=== PATIENT | female | born 1990 | race Caucasian/White ===

== ENCOUNTER 2016-08-28 14:13 | Inpatient (IN) | payer OTHER ==
[~2016-08-28] VITALS: Ht 157.5 cm; Wt 84.4 kg
[~2016-08-28 14:13] MED LIST: CEPH-443 PO
[2016-08-28 14:19] VITALS: BP 113/71; Ht 157.5 cm; Wt 84.4 kg
[2016-08-28] MEDS ORDERED: PREN1TAB17 PO (14:24)
[2016-08-28] MEDS ORDERED: FERR134T PO (14:25)
[2016-08-28] MEDS ORDERED: OXYTOCIN 30 UNITS/LR 500 ML IV PRN (15:30)
[2016-08-28] MEDS ORDERED: OXYTOCIN 30 UNITS/LR 500 ML IV SCH ×2 (15:30)
[2016-08-28] MEDS ORDERED: METHYLERGONOVINE 0.2 MG INJ IM PRN (15:30)
[2016-08-28] MEDS ORDERED: CARBOPROST 250 MCG INJ IM PRN (15:30)
[2016-08-28] MEDS ORDERED: MISOPROSTOL 200 MCG TAB PR PRN (15:30)
[2016-08-28] MEDS ORDERED: LIDOCAINE 1% (MPF) 30 ML INJ INJ PRN (15:30)
[2016-08-28] MEDS ORDERED: BUTORPHANOL 2 MG INJ IV PRN (15:30)
--- NOTE | 2016-08-28 15:44 | TRIAGE ---
OB Triage Datetime Report Generated by CPN: 08/28/2016 15:43 Datetime: 08/28/2016 14:36 Vaginal Exam Dilatation (cms): 0.0 Effacement (%): 50 Station: -3 Exam By: Enrique VILLEGAS Membrane Status: Ruptured Membranes Rupture Method: Spontaneous Amniotic Fluid Amount: Moderate Amniotic Fluid Odor: None Pool: Positive Nitrazine: Positive Datetime: 08/28/2016 14:28 Stage of : OB Triage Assessment Type: Triage Maternal Assessment Level of Consciousness: Fully Conscious DTR's/Clonus: DTRs 2+; No Clonus Headache: Denies Blurred Vision: No Respiratory Effort: Unlabored; Regular Rhythm; Equal Expansion Breath Sounds, Left: Clear and Equal Breath Sounds, Right: Clear and Equal Nausea/Vomiting: Denies RUQ Epigastric Pain: Denies Lower Extremities Edema: None Degree: None Upper Extremities Edema: None Degree: None Facial Edema: None Temperature Route: Oral Fall Risk Assessment History of Falling: (0) No Secondary Diagnosis: (0) No Ambulatory Aid: (0) Bedrest/Nurse Assist IV Therapy: (0) No Gait: (0) Normal/Bedrest/Immobile Mental Status: (0) Oriented to Own Ability Fall Score: 0 Fall Risk Score Definition: No Risk: No action required Labor Evaluation Monitor Mode: External Heart Rate FHR Baseline Rate: 135 Monitor Mode: External US Variability: Moderate 6-25 bpm Accelerations: 15X15 Decelerations: None Category: Category I Pain Assessment Pain Scale: 0 Pain Presence: None/Denies Pain Type: N/A Datetime: 08/28/2016 14:27 Time of Arrival: 08/28/2016 14:08 EGA: 38.1 Arrived By: Ambulatory Arrived From: Home Chief Complaint: C/O SPOTTING AND UC'S Movement: Present Contractions: Irregular Time Contractions Began: 08/28/2016 08:00 Contractions: X10 MIN Rupture of Membranes: Unsure Vaginal Bleeding: Small Vaginal Discharge: Denies Recent Sexual Intercouse: Denies Abdominal Trauma: Not Applicable Patient Complaints: Contractions Time Provider Notified: 08/28/2016 14:45 Provider Notified: Dr. Fox Initial Plan: [id number]
--- NOTE | 2016-08-28 16:13 | RADRPT ---
PROCEDURE: Obstetrical ultrasound CLINICAL INDICATION: [facility] TECHNIQUE: Multiple sonographic images of the pelvis were obtained. The images were reviewed on a PACS workstation. COMPARISON: None FINDINGS: The cervix is not well visualized. There is a single viable intrauterine gestation. Cardiac activity is present with 137 beats per minute. There is a vertex presentation. The placenta is posterior. There is no evidence for an abruption or placenta previa. There is a subjectively normal amount of amniotic fluid. Measurements were made in order to determine age. The results are as follows (cm): BPD =9.15 HC =32.86 AC =33.11 FL =7.23 Estimated gestational age by ultrasound of approximately 37 weeks, 1 day. The estimated date of delivery by ultrasound is 09/17/2016. Estimated gestational age by LMP of approximately 38 weeks, 1 day. The estimated date of delivery by LMP is 09/10/2016. EFW = 3107 grams (35th percentile) IMPRESSION: Single viable intrauterine gestation of approximately 37 weeks, 1 day . The estimated date of delivery is 09/17/2016 . Dating by ultrasound is within 1 week of dating by LMP. Cephalic presentation. The cervix is not well visualized. There is a subjectively normal amount of amniotic fluid. RPTAT: EE Physician Cyrus Date Time Electronically viewed and signed by Physician Cyrus on 08/28/2016 16:13 /
[2016-08-28] MEDS: LACTATED RINGER'S 1,000 ML IV SCH ×3 (16:15→19:01)
[2016-08-28 16:29] LABS: BASOPHILS % 0.1 % (0.0-2.0); EOSINOPHILS # 0.1 10^3/ul (0.0-0.5); EOSINOPHILS % 0.6 % (0.0-7.0); HEMOGLOBIN 11.7 g/dl (12.0-16.0); LYMPHOCYTES # 2.2 10^3/ul (0.8-2.9); LYMPHOCYTES % 23.8 % (15.0-51.0); MEAN CORPUSCULAR HEMOGLOBIN 27.9 pg (29.0-33.0); MEAN CORPUSCULAR HGB CONC 33.4 g/dl (32.0-37.0); MEAN CORPUSCULAR VOLUME 83.5 fl (82.0-101.0); MONOCYTE # 0.5 10^3/ul (0.3-0.9); MONOCYTES % 5.2 % (0.0-11.0); NEUTROPHIL # 6.5 10^3/ul (1.6-7.5); PLATELET COUNT 263 10^3/UL (140-415); RED BLOOD COUNT 4.19 10^6/ul (4.20-5.40); RED CELL DISTRIBUTION WIDTH 14.5 % (11.5-14.5); WHITE BLOOD COUNT 9.4 10^3/ul (4.8-10.8)
[2016-08-28 16:35] LABS: INR 0.88; PROTIME 11.9 Sec (12.2-14.2); PT RATIO 0.9
[2016-08-28 16:36] LABS: PARTIAL THROMBOPLASTIN TIME 26.2 Sec (25.0-35.0)
[2016-08-28] MEDS ORDERED: LACTATED RINGER'S 1,000 ML IV PRN (18:00)
[2016-08-28] MEDS ORDERED: FENTAnyl 2MCG/ML-ROPIV 0.2% 100 ML BAG EPI SCH (19:00)
[2016-08-28] MEDS ORDERED: DIPHENHYDRAMINE 50 MG INJ IV PRN (19:00)
[2016-08-28] MEDS ORDERED: EPHEDrine SULFATE 50 MG/5 ML SYG IV PRN (19:00)
[2016-08-28] MEDS ORDERED: ONDANSETRON 4 MG INJ IV PRN (19:00)
[2016-08-28] MEDS ORDERED: NALOXONE (0.4 MG/ML) INJ IV PRN (19:00)
[2016-08-29] MEDS: LACTATED RINGER'S 1,000 ML IV SCH (02:40)
[2016-08-29] MEDS ORDERED: LACTATED RINGER'S 1,000 ML IV* SCH (06:34)
--- NOTE | 2016-08-29 06:34 | LDN ---
Date/Time of Note Date/Time of Note DATE: 08/29/16 TIME: 06:32 Delivery Summary VAVD secondary to maternal exhaustion, 1 pull 15 seconds no pop offs, no complication Weeks of Gestation 38 Assisted Vaginal Delivery: Vacuum Placenta Delivered: Spontaneously Meconium: none Episiotomy: Yes Laceration repair: rmle repair with 2-0 and 3-0 chromic Anesthesia type: Epidural Estimated blood loss: 250 Sponge & Needle done & correct: Yes All needle counts correct: Yes Any foreign bodies felt in the: No Problems: Delivery Information Sex Sex: female Apgars 1 Minute: 9 5 Minute: 9 Suctioning Nose & mouth suctioned at rafa: No Delee suction performed: No Umbilical Cord Umbilical cord with: 3 Vessels Cord Blood was obtained: Yes YAHAIRA COURTNEY MD Aug 29, 2016 06:34
--- NOTE | 2016-08-29 06:41 | HP ---
Date/Time of Note Date/Time of Note DATE: 08/29/16 TIME: 06:38 Assessment/Plan VTE Prophylaxis VTE Prophylaxis Intervention: SCD's Lines/Catheters IV Catheter Type (from Nrsg): Peripheral IV Assessment/Plan Assessment/Plan iup at term in labor expectant vaginal delivery pitocin prn HPI/ROS Admit Date/Time Admit Date/Time Aug 28, 2016 at 15:30 Hx of Present Illness iup at term, leaking fluid with contractions ROS Constitutional: improved, no complaints Eyes: no complaints ENT: no complaints Respiratory: no complaints Cardiovascular: no complaints Gastrointestinal: no complaints Genitourinary: no complaints Musculoskeletal: no complaints Skin: no complaints Neurologic: no complaints Endocrine: no complaints Lymphatic: no complaints Psychological: nl mood/affect, no complaints Immunologic: no complaints PMH/Family/Social Past Medical History Medical History: no pertinent history Past Surgical History Past Surgical Hx: no surgical history Family History Significant Family History: no pertinent family hx Social History Alcohol Use: none Smoking Status: Never smoker Drug Use: none Exam/Review of Systems Vital Signs Vitals Vital Signs Date Time Temp Pulse Resp B/P Pulse Ox O2 Delivery O2 Flow Rate FiO2 08/28/16 14:19 98.1 113/71 Room Air Intake and Output 08/28/16 08/28/16 08/29/16 15:00 23:00 07:00 Intake Total 2435 ml 775 ml Output Total 1400 ml Balance 1035 ml 775 ml Exam Constitutional: alert, oriented, well developed Psych: nl mood/affect, no complaints Head: atraumatic, normocephalic Eyes: EOMI, PERRL, nl conjunctiva, nl lids, nl sclera ENMT: nl external ears & nose, nl lips & teeth, nl nasal mucosa & septum Neck: non-tender, supple Respiratory: clear to auscultation, normal air movement Cardiovascular: nl pulses, regular rate and rhythm Gastrointestinal: nl liver, spleen, non-tender, soft Genitourinary - Female: CMT, CVA tenderness, nl adnexae, nl external genitalia , other (ve: 4/80/-2 srom), uterus (gravid) Musculoskeletal: nl extremities to inspection Extremities: normal pulses Neurological: GRAPHIC ENGINEER II-XII intact, nl mental status, nl speech, nl strength Lymph: nl lymph nodes Labs Result Diagram: 08/28/16 1606 Medications Medications Current Medications Lactated Ringer's (Lr) 1,000 ml @ 125 mls/hr Q8H IV Last administered on t 02:40; Admin Dose 125 MLS/HR; Start 08/28/16 at 15:28 Butorphanol Tartrate (Stadol) 2 mg Q2H PRN IV PAIN; Start 08/28/16 at 15:30 Lidocaine 30 ml 30 ml ONCE PRN INJ EPISIOTOMY/TEARING; Start 08/28/16 at 15:30 Oxytocin/Lactated Ringer's 500 ml @ 125 mls/hr ONCE IV ; Start 08/28/16 at 15: 30 Lactated Ringer's 1,000 ml @ 2,000 mls/hr Q30M PRN IV PRE-EPIDURAL BOLUS; Start 08/28/16 at 18:00 Oxytocin/Lactated Ringer's 500 ml @ 0 mls/hr ONCE PRN IV For Hemorrhage Management; Start 08/28/16 at 15:30 Methylergonovine Maleate (Methergine) 0.2 mg ONCE PRN IM VAGINAL BLEEDING; Start 08/28/16 at 15:30 Carboprost Tromethamine (Hemabate) 250 mcg ONCE PRN IM VAGINAL BLEEDING; Start 08/28/16 at 15:30 Misoprostol (Cytotec) 1,000 mcg ONCE PRN [place] VAGINAL BLEEDING; Start 08/28/16 at 15:30 YAHAIRA COURTNEY MD Aug 29, 2016 06:41
[2016-08-29] MEDS ORDERED: SENNA/DOCUSATE NA (8.6MG/50MG) TAB PO PRN (07:00)
[2016-08-29] MEDS ORDERED: WITCH HAZEL/GLYCERIN PAD PR PRN (07:00)
[2016-08-29] MEDS ORDERED: DIPHENHYDRAMINE 50 MG INJ IV PRN (07:00)
[2016-08-29] MEDS ORDERED: MISOPROSTOL 200 MCG TAB PR PRN (07:00)
[2016-08-29] MEDS ORDERED: ACETAMINOPHEN 325 MG TAB PO PRN (07:00)
[2016-08-29] MEDS ORDERED: ONDANSETRON 4 MG TAB PO PRN (07:00)
[2016-08-29] MEDS ORDERED: BENZOCAINE 20% 56 ML SPRAY TOP PRN (07:00)
[2016-08-29] MEDS ORDERED: METHYLERGONOVINE 0.2 MG INJ IM PRN (07:00)
[2016-08-29] MEDS ORDERED: DIPHENHYDRAMINE 25 MG CAP PO PRN (07:00)
[2016-08-29] MEDS ORDERED: CARBOPROST 250 MCG INJ IM PRN (07:00)
[2016-08-29] MEDS ORDERED: ONDANSETRON 4 MG INJ IV PRN (07:00)
[2016-08-29] MEDS ORDERED: DIBUCAINE 1% 30 GM OINT PR PRN (07:00)
[2016-08-29] MEDS ORDERED: OXYCODONE/ASPIRIN (4.88/325) TAB PO PRN ×2 (07:00)
[2016-08-29] MEDS ORDERED: OXYTOCIN 30 UNITS/LR 500 ML IV PRN (07:00)
[2016-08-29] MEDS: MAGNESIUM HYDROXIDE 30ML CUP PO SCH ×2 (09:24→21:00)
[2016-08-29] MEDS: SENNA/DOCUSATE NA (8.6MG/50MG) TAB PO SCH ×2 (09:24→21:00)
[2016-08-29] MEDS: LANOLIN 7 GM TUBE TOP PRN (09:29)
[2016-08-29 12:00] VITALS: BP 91/56; PULSE 91; RESP 17
[2016-08-29] MEDS: IBUPROFEN 600 MG TAB PO SCH ×2 (12:47→17:37)
[2016-08-29 16:00] VITALS: BP 92/52; PULSE 87; RESP 17
[2016-08-29 21:30] VITALS: BP 98/56; PULSE 91; RESP 17
[2016-08-30] MEDS: IBUPROFEN 600 MG TAB PO SCH ×5 (00:13→23:50)
[2016-08-30 04:00] VITALS: BP 100/58; PULSE 55; RESP 18
[2016-08-30 08:00] VITALS: BP 106/59; PULSE 74; RESP 16
[2016-08-30] MEDS: MAGNESIUM HYDROXIDE 30ML CUP PO SCH ×2 (09:00→21:00)
[2016-08-30] MEDS: SENNA/DOCUSATE NA (8.6MG/50MG) TAB PO SCH ×2 (09:00→21:00)
[2016-08-30 10:46] LABS: BASOPHILS % 0.3 % (0.0-2.0); EOSINOPHILS # 0.1 10^3/ul (0.0-0.5); EOSINOPHILS % 0.9 % (0.0-7.0); HEMATOCRIT 31.7 % (37.0-47.0); HEMOGLOBIN 10.1 g/dl (12.0-16.0); LYMPHOCYTES # 2.7 10^3/ul (0.8-2.9); LYMPHOCYTES % 23.6 % (15.0-51.0); MEAN CORPUSCULAR HEMOGLOBIN 26.8 pg (29.0-33.0); MEAN CORPUSCULAR HGB CONC 31.9 g/dl (32.0-37.0); MEAN CORPUSCULAR VOLUME 84.1 fl (82.0-101.0); MEAN PLATELET VOLUME 11.2 fl (7.4-10.4); MONOCYTE # 0.4 10^3/ul (0.3-0.9); MONOCYTES % 3.4 % (0.0-11.0); NEUTROPHIL # 7.9 10^3/ul (1.6-7.5); NEUTROPHILS % 70.6 % (39.0-77.0); PLATELET COUNT 239 10^3/UL (140-415); RED BLOOD COUNT 3.77 10^6/ul (4.20-5.40); WHITE BLOOD COUNT 11.2 10^3/ul (4.8-10.8)
[2016-08-30 15:45] VITALS: BP 101/52; RESP 17
[2016-08-30] MEDS ORDERED: FENTAnyl 2MCG/ML-ROPIV 0.2% 0 ML ONE (18:01)
--- NOTE | 2016-08-30 19:06 | PD.PPDC ---
PRINCIPAL SCIENTIST Discharge Instruction Condition Patient Condition: Fair Diet Diet: Resume Regular Diet Activity/Restrictions Activity: Normal Activity May Shower Restrictions: No Exercising No Lifting No Driving No Sexual Activity Nothing in the Vagina No [place] No Tampons, douche Wound/Drain Care Instructions Wound/Drain Care Instructions: Wash with soap and water Keep clean and dry Follow-up Follow-up with Physician: 3, Week/Weeks Return to clinic for RECRUITING AND SELECTION CONSULTANT Instructions: Fever greater than 101 Chills Worsening abdominal pain Excessive Vaginal Bleeding More than 2 pads per hour Unable to tolerate diet OB Instructions: Breast Tenderness Depression Blurried Vision Headache Surgical Instructions: Incisional Drainage Incisional Redness YAHAIRA COURTNEY MD Aug 30, 2016 19:06
--- NOTE | 2016-08-30 19:10 | DS ---
Date/Time of Note Date/Time of Note DATE: 08/30/16 TIME: 19:09 Obstetrical Discharge Record Final Diagnosis Final Diagnosis: Term delivered Vaginal Delivery Obstetrical Delivery: Episiotomy, Repaired Complications Augmentation: Yes Condition on Discharge Physical Assessment Voiding: Yes Bowel Movement: Yes Breast: Soft, non-tender, Filling Fundus: Firm Abdomen and Incision: soft nt no distention Calf Tenderness: No Patient Condition: Fair YAHAIRA COURTNEY MD Aug 30, 2016 19:10
[2016-08-30 20:30] VITALS: BP 108/62; PULSE 76; RESP 19
[2016-08-31 03:45] VITALS: BP 105/69; PULSE 72; RESP 18
[2016-08-31] MEDS: IBUPROFEN 600 MG TAB PO SCH ×2 (05:42→12:19)
[2016-08-31 08:30] VITALS: BP 102/53; PULSE 68; RESP 20
[2016-08-31] MEDS: SENNA/DOCUSATE NA (8.6MG/50MG) TAB PO SCH (08:57)
[2016-08-31] MEDS: MAGNESIUM HYDROXIDE 30ML CUP PO SCH (08:57)
[2016-08-31] MEDS: LANOLIN 7 GM TUBE TOP PRN (12:19)
[2016-08-31 15:40] VITALS: BP 112/62; PULSE 70; RESP 20
== END 2016-08-31 18:00 | disposition home or self-care (01) | DRG 775 ==
LOC: OBT 14:13 → L-D 14:14 → OBT 15:30 → L-D 15:30 → PP1 08-29 08:55
PROVIDERS: ADMIT Obstetrics & Gynecology; ATTEND Obstetrics & Gynecology
PROC: 4A1HX4Z Monitoring of Products of Conception, Cardiac Electrical Activity, External Approach (ICD-10-PCS; 2016-08-28)
PROC: 10D07Z6 Extraction of Products of Conception, Vacuum, Via Natural or Artificial Opening (ICD-10-PCS; principal; 2016-08-29)
PROC: 0W8NXZZ Division of Female Perineum, External Approach (ICD-10-PCS; 2016-08-29)
DX: O75.81 Maternal exhaustion complicating labor and delivery (principal); Z3A.38 38 weeks gestation of pregnancy; Z37.0 Single live birth
CPT/HCPCS: 62319; 76815; 84112; 85025; 85610; 85730; 86592; 86900; 86901; G0463; J2590; J3010; J7120

== ENCOUNTER 2017-09-24 08:55 | Emergency (ER) | END 2017-09-24 10:25 | disposition home or self-care (01) ==